=== PATIENT | male | born 1960 | race Caucasian/White ===

== ENCOUNTER 2017-08-29 08:26 | Emergency (ER) | payer MEDICARE, OTHER ==
[~2017-08-29] VITALS: Ht 182.9 cm; Wt 113.5 kg
[~2017-08-29 08:26] MED LIST: CHLO25CA PO; DOXY100T PO; IBUP400T20 PO; LEVA750T9 PO; LEXA10TA PO; METH5SOL3 PO; MORPPOW IMPLANPUMP; RIFA300 PO; SULF-154 PO; TESTIM TOP
[2017-08-29 08:35] VITALS: BP 196/108; PULSE 110; RESP 18; TEMP 98.1; O2SAT 97
[2017-08-29 08:45] VITALS: BP 141/89; PULSE 94; RESP 17; O2SAT 97
[2017-08-29] MEDS ORDERED: SODIUM CHLOR 0.9% 1000 ML INJ 1,000 ML IV SCH (09:30)
[2017-08-29] MEDS ORDERED: LORazepam 2 MG/ML VIAL IV PUSH ONE (09:30)
[2017-08-29] MEDS ORDERED: DICYCLOMINE HCL 10 MG CAP PO ONE (09:30)
[2017-08-29] MEDS ORDERED: METOCLOPRAMIDE HCL 10 MG/2 ML VIAL IV PUSH ONE (09:30)
[2017-08-29] MEDS ORDERED: SODIUM CHLORIDE 0.9% FLUSH 10 ML FLUSH IV FLUSH PRN (09:30)
--- NOTE | 2017-08-29 09:35 | PD ---
HPI Chief Complaint: Alcohol/Drug Intoxication Time Seen by Provider: 09:03 Travel History International Travel<30 days: No Contact w/Intl Traveler<30days: No Traveled to known affect area: No History of Present Illness HPI Patient is 56-year-old male with history of alcoholism, chronic pain, presents the emergency room for evaluation of alcohol withdrawal. Patient reports that he drinks about 30 beers per day, reports that he has been in alcoholic for the majority of his life. Reports that his last beer was at 9pm last night. Reports that he is trying to quit drinking alcohol and went to the [facility], [place] this morning for detox but there were no beds, patient presents to the ER for symptomatic relief. Reports that he feels nauseous, shaky, is concerned for withdrawal symptoms. Denies si/hi. Patient also with history of hypertension, reports that he has not taken his meds for the past week as he is on a current alcohol binge. PFSH Past Medical History Autoimmune Disease: No Blood Disorders: No Heart Rhythm Problems: No Cancer: No Cardiovascular Problems: Yes (HTN) High Cholesterol: No Chest Pain: No Congestive Heart Failure: No Diabetes: No Diminished Hearing: No Endocrine: No Gastrointestinal Disorders: Yes GERD: Yes Glaucoma: No Genitourinary: No Hepatitis: No Hiatal Hernia: No Hypertension: Yes Immune Disorder: No Musculoskeletal: Yes (RIGHT HIP REPLACEMENT;OSTEOMYELITIS RIGHT FOOT) Neurologic: No Respiratory: No Myocardial Infarction: No Thyroid Disease: No Past Surgical History Abdominal Surgery: No Cardiac Surgery: No Ear Surgery: No Endocrine Surgery: No Eye Surgery: No Genitourinary Surgery: No Gynecologic Surgery: No Joint Replacement: Yes (total r hip) Neurologic Surgery: Yes (cervical disc fusion c 5-6 or 6-7) Oral Surgery: No Pacemaker: No Thoracic Surgery: No Other Surgery: Yes (R BKA, ) Social History Alcohol Use: Yes (1-2 DAY) Tobacco Use: Yes (35 PACK YEARS) Substance Use: No Allergies-Medications (Allergen,Severity, Reaction): Coded Allergies: No Known Allergies (Verified , 11/27/07) Reported Meds & Prescriptions Reported Meds & Active Scripts Active Bentyl (Dicyclomine HCl) 10 Mg Cap 10 Mg PO TID PRN Ativan (Lorazepam) 1 Mg Tab 1 Mg PO Q6H PRN Septra Ds (Trimethoprim/Sulfamethoxazole) Tab 1 Tab PO BID Doxycycline Hyclate 100 mg (Doxycycline Hyclate) 100 Mg Cap 100 Mg PO BID Doxycycline Hyclate 100 mg (Doxycycline Hyclate) 100 Mg Cap 100 Mg PO BID Septra Ds (Trimethoprim/Sulfamethoxazole) Tab 1 Tab PO BID Rifadin (Rifampin) 300 Mg Cap 300 Mg PO BID 5 Days Levaquin (Levofloxacin) 750 Mg Tab 1 Tab PO DAILY 5 Days Librium (Chlordiazepoxide) 25 Mg Cap 25 Mg PO BIDPRN Reported [Testim] 1 % TOP DAILY Methadone HCl 5 Mg/5 Ml Aziza 20 Mg PO TID Motrin (Ibuprofen) 400 Mg Tab 400 Mg PO QIDPRN Lexapro (Escitalopram Oxalate) 10 Mg Tab 10 Mg PO DAILY Morphine Sulfate 5 Mg Supp 0 Mg IMPLANPUMP UNKNOWN DOSE Review of Systems General / Constitutional: No: Fever Eyes: No: Visual changes HENT: No: Headaches Cardiovascular: No: Chest Pain or Discomfort Respiratory: No: Shortness of Breath Gastrointestinal: Positive: Nausea, Vomiting, No: Abdominal Pain Genitourinary: No: Dysuria Musculoskeletal: No: Pain Skin: No Rash Neurologic: No: Weakness Psychiatric: Positive: Substance Abuse, No: Depression Endocrine: No: Polydipsia Hematologic/Lymphatic: No: Easy Bruising Physical Exam Narrative GENERAL: Mild distress SKIN: Focused skin assessment warm/dry. HEAD: Atraumatic. Normocephalic. EYES: Pupils equal and round. No scleral icterus. No injection or drainage. ENT: No nasal bleeding or discharge. Mucous membranes pink and moist. NECK: Trachea midline. No JVD. CARDIOVASCULAR: Regular rate and rhythm. No murmur appreciated. RESPIRATORY: No accessory muscle use. Clear to auscultation. Breath sounds equal bilaterally. GASTROINTESTINAL: Abdomen soft, non-tender, nondistended. Hepatic and splenic margins not palpable. MUSCULOSKELETAL: No obvious deformities. No clubbing. No cyanosis. No edema. NEUROLOGICAL: Awake and alert. No obvious cranial nerve deficits. Motor grossly within normal limits. Normal speech. PSYCHIATRIC: Appropriate mood and affect; insight and judgment normal. Data Data Last Documented VS Vital Signs Date Time Temp Pulse Resp B/P (MAP) Pulse Ox O2 Delivery O2 Flow Rate FiO2 08/29/17 10:28 93 17 167/91 (116) 99 Room Air 08/29/17 08:35 98.1 Orders Orders Iv Access Insert/Monitor (08/29/17 09:30) Sodium Chlor 0.9% 1000 Ml Inj (Ns 1000 M (08/29/17 09:30) Sodium Chloride 0.9% Flush (Ns Flush) (08/29/17 09:30) Metoclopramide Inj (Reglan Inj) (08/29/17 09:30) Lorazepam Inj (Ativan Inj) (08/29/17 09:30) Dicyclomine (Bentyl) (08/29/17 09:30) MDM Medical Decision Making Medical Screen Exam Complete: Yes Emergency Medical Condition: Yes Medical Record Reviewed: Yes Interpretation(s) Vital Signs Date Time Temp Pulse Resp B/P (MAP) Pulse Ox O2 Delivery O2 Flow Rate FiO2 08/29/17 08:35 98.1 110 18 196/108 (137) 97 Differential Diagnosis Alcohol withdrawal Narrative Course During the course of the patients emergency department visit, the patients history, examination, and differential diagnosis were reviewed with the patient. The patient was placed on a monitoring and evaluation advisor with oximetry and frequent blood pressure monitoring. The patient had an IV access obtained and blood work sent for analysis. The patient was initially provided IV fluids, IV Ativan as well as IV Reglan and oral Bentyl. Patient understands that I cannot admit him to the hospital for alcohol detox, he will follow-up at [facility], [place]. Patient re-evaluation, patient feeling much better at this time. Plan to discharge with ativan, bentyl and zofran. He will follow up at the [facility], [place], [facility] Diagnosis Primary Impression: Alcohol withdrawal Qualified Codes: F10.230 - Alcohol dependence with withdrawal, uncomplicated Referrals: [facility] Patient Instructions: General Instructions Additional Instructions: Do not drive or operate heavy machinery while taking Ativan Please follow up with your primary care doctor in 2-3 days Return to the ER if symptoms worsen or progress Return to the ER as needed Med/Other Pt SpecificInfo: Prescription(s) given Scripts Ondansetron (Zofran) 4 Mg Tab 4 MG PO Q6HR Y for NAUSEA OR VOMITING, #20 TAB 0 Refills Prov: Fatmata Perea DO 08/29/17 Dicyclomine (Bentyl) 10 Mg Cap 10 MG PO TID Y for ABDOMINAL CRAMPING, #12 CAP 0 Refills Prov: Fatmata Perea DO 08/29/17 Lorazepam (Ativan) 1 Mg Tab 1 MG PO Q6H Y for WITHDRAWAL, #10 TAB 0 Refills Prov: Fatmata Perea DO 08/29/17 Disposition: 01 DISCHARGE HOME Condition: Stable Fatmata Perea DO Aug 29, 2017 09:35
[2017-08-29 10:28] VITALS: BP 167/91; PULSE 93; RESP 17; O2SAT 99
[2017-08-29] MEDS ORDERED: DICY10 PO (10:29)
[2017-08-29] MEDS ORDERED: ZOFR4TAB PO (10:29)
[2017-08-29] MEDS ORDERED: LORA-474 PO (10:29)
== END 2017-08-29 10:45 | disposition home or self-care (01) ==
LOC: NEPC 08:26
DX: F10.239 Alcohol dependence with withdrawal, unspecified (principal); R11.2 Nausea with vomiting, unspecified; I10 Essential (primary) hypertension; K21.9 Gastro-esophageal reflux disease without esophagitis; F17.200 Nicotine dependence, unspecified, uncomplicated; Z79.899 Other long term (current) drug therapy
CPT/HCPCS: 96361; 96374; 96375; 99284; J2060; J2765; J7030